=== PATIENT | female | born 2000 | race African-American/Black ===

== ENCOUNTER → 2024-04-28 | Outpatient (CLI) | payer OTHER ==
[2024-05-02 14:42] LABS: HSV 2 IGG TYPE SPECIFIC < 0.90 index (<0.90)
== END ==
LOC: M LAB 14:33
PROVIDERS: ATTEND Physician Assistant Medical
DX: B00.9 Herpesviral infection, unspecified (principal)

== ENCOUNTER → 2024-11-08 | Outpatient (REF) | LOC: M LAB 14:45 | PROVIDERS: ATTEND Family Medicine | DX: Z11.59 Encounter for screening for other viral diseases (principal) ==

== ENCOUNTER → 2024-11-22 | Outpatient (CLI) | payer OTHER | LOC: M LAB 13:50 | PROVIDERS: ATTEND Nurse Practitioner Adult Health | DX: B01.9 Varicella without complication (principal) ==

== ENCOUNTER 2025-05-25 17:24 | Emergency (ER) | payer OTHER ==
[~2025-05-25] VITALS: Ht 152.4 cm; Wt 73.4 kg
[2025-05-25] MEDS ORDERED: ACET-683 PO (17:31)
[2025-05-25 19:52] VITALS: BP 101/58; TEMP 98.8; O2SAT 100
== END 2025-05-25 20:46 | disposition home or self-care (01) ==
LOC: M ED 17:24
DX: J06.9 Acute upper respiratory infection, unspecified (principal); Z79.1 Long term (current) use of non-steroidal anti-inflammatories (NSAID)

== ENCOUNTER → 2025-05-25 | Outpatient (REF) ==
[~2025-05-25] MED LIST: ACET-683 PO
== END ==
LOC: M EMP 09:40
PROVIDERS: ATTEND Family Medicine
DX: Z53.9 Procedure and treatment not carried out, unspecified reason (principal)